=== PATIENT | female | born 1955 | race Caucasian/White ===

== ENCOUNTER 2018-08-30 14:05 | Outpatient (CLI) | payer BC ==
--- NOTE | 2018-08-30 15:44 | RAD ---
RIGHT RING DIGIT RADIOGRAPHS THREE VIEWS: 08/30/2018 PROVIDED CLINICAL HISTORY: Fourth digit pain status post injury. FINDINGS: There is a subtle avulsion fracture involving the base of the ring digit, middle phalanx, ulnarly. N o additional fracture is evident. Alignment appears anatomic. Joint spaces appear preserved. IMPRESSION: Avulsion fracture involving the base of the ring digit middle phalanx, ulnarly. POS: [facility]
== END 2018-08-30 14:06 | disposition home or self-care (01) ==
LOC: SCSRAD 14:05
PROVIDERS: ATTEND Internal Medicine
DX: M79.644 Pain in right finger(s) (principal); S62.624A Displaced fracture of middle phalanx of right ring finger, initial encounter for closed fracture

== ENCOUNTER 2018-09-17 07:26 | Day surgery (SDC) | payer BC ==
[2018-09-16 14:15] VITALS: BMI 23.0
[2018-09-17] MEDS ORDERED: Bupivacaine PF 0.5% 30 ML VIAL ONE (10:08)
[2018-09-17] MEDS ORDERED: Sodium Chloride 0.9% 10 ML ONE (10:08)
[2018-09-17] MEDS ORDERED: Famotidine/PF 20 mg/2ml Vial ONE (10:09)
[2018-09-17] MEDS ORDERED: Fentanyl 100 MCG/2 ML VIAL ONE ×2 (10:09→13:47)
[2018-09-17] MEDS ORDERED: Ondansetron PF 4 MG/2 ML Vial ONE (13:40)
[2018-09-17] MEDS ORDERED: Lidocaine 1% PF 5 ML VIAL ONE (13:40)
[2018-09-17] MEDS ORDERED: Dexamethasone 20 MG/5 ML VIAL ONE (13:40)
[2018-09-17] MEDS ORDERED: PROPOFOL 200 MG/20 ML VIAL ONE (13:40)
[2018-09-17] MEDS ORDERED: Ketorolac Tromethamine 30 MG/ML VIAL ONE ×2 (13:40→14:17)
[2018-09-17] MEDS ORDERED: Ondansetron ODT 4 MG TAB ONE (14:58)
--- NOTE | 2018-09-17 16:05 | RAD ---
RIGHT FOURTH FINGER TWO VIEWS: HISTORY: Status post ORIF. FINDINGS: Evidence for a fracture involving the middle phalanx of the 4th finger. Placement of pin and small m edial plate and screws stabilize the middle phalanx of the 4th finger, without significant malalignme nt. POS: C
--- NOTE | 2018-09-20 10:10 | OP ---
DATE OF PROCEDURE: 09/17/2018 PREOPERATIVE DIAGNOSES: Right proximal phalanx malunion, periarticular and intra-articular with a 1.5 mm step-off central and ulna leading to apex radial angulation of almost 20 degrees without malrotation. POSTOPERATIVE DIAGNOSES: Right proximal phalanx malunion, periarticular and intra-articular with a 1.5 mm step-off central and ulna leading to apex radial angulation of almost 20 degrees without malrotation. PROCEDURES PERFORMED: 1. Joint manipulation under anesthesia. 2. C-arm supervision. 3. Joint elevation with K-wires and curettes and three osteotomy of the metaphyseal diaphyseal junction, closed wedge with bone grafting and fixation with 1.5 mm Synthes screws. ESTIMATED BLOOD LOSS: 10 mL. TOURNIQUET TIME: 102 minutes. FINDINGS: At the end of procedure, with the joint level with the osteotomy as listed above, there was 1 to 1.5 mm of central compression. No instability and had passive motion to -5 to 110 degrees intraoperatively. DESCRIPTION OF PROCEDURE: After successful general LMA technique, the limb was prepped and draped. The patient had a block performed with 15 mL of 0.5% Marcaine at metacarpophalangeal joint level. From here, the patient had the limb exsanguinated, tourniquet inflated to 250 mmHg pressure, and we began to open part. We first made an incision on the mid lateral small finger side hoping to make an open wedge osteotomy, but all we had to do here was to force joint level and here we attempted to do some reparative correction to the sagittal plane split. We then noticed that the sagittal plane split still with problem, but after multiple joystick attempts, we were able to slightly decrease the angulation at the base of ulnar side of the PIP joint. Then, we placed two wires here in the small finger side, mid lateral approach, parallel to the other reparative joint noting 1 cm osteotomy had to be at least 20 degrees away from each of angulation. The patient then had minimal successive joint elevation, so we decided to not distort the joint or to replace, but to perform an osteotomy closing wedge. This allowed more stability and easier correction. We then made a midlateral incision on the opposite side of the finger, the radial side, carried the skin, subcutaneous tissue, identified collaterals as well as the other parts of the extrinsic tendon system and protected them. There, we outlined a saw cut 3 to 4 mm from distal to the metaphyseal base and palmar to the extensor tendons and dorsal to the flexor tendon. I made a saw cut parallel. Then we calculated there was approximately 22-degree angulation without rotation, so we overcorrected and we needed approximately 2 mm closed wedge bone cut and as we finished manipulating the ulnar joint to create as much joint level as possible, we made this cut, removed the wafer and closed it and held with a K-wire. This indeed allow for slight over-correction, so we had to relax this and place some more bone graft at the osteotomy site. We then re-K-wired, had excellent position in the frontal sagittal plane, placed the plate in appropriate position. There was only holes with one hole being exactly over the fracture site. The patient then had the K-wire passed across this osteotomy site, held it in the same frontal and sagittal plane, bone and clinical gross orientation with correction of the angulation and it matched the contralateral side. We then noticed that we did not completely close, so we had made a slightly larger cut that needed for correction, but in order for over-correction, we skewed it here bone graft just to include some graft that was used to help support the subarticular region with cancellous chips from donated cadaver. Then, in order to stabilize this and make early motion, we placed a midlateral plane plate from the radial side with two screws distal and proximal to the fracture line. The patient left the operating room. The patient then had the tourniquet deflated. We manipulated the joint to 150 degrees of flexion and -10 extension easily. We then closed the incisions in the mid-lateral position of the radioulnar aspect with 4-0 nylon interrupted fashion, and placed the patient in a bulky dressing and after given the last 5 mL of the injection as listed above and the patient had no complications. Job ID: [id number]
== END 2018-09-17 15:32 | disposition home or self-care (01) ==
LOC: SDC 07:26
PROVIDERS: ATTEND Orthopaedic Surgery Hand Surgery
PROC: 0PST04Z Reposition Right Finger Phalanx with Internal Fixation Device, Open Approach (ICD-10-PCS; principal; 2018-09-17)
DX: S62.614A Displaced fracture of proximal phalanx of right ring finger, initial encounter for closed fracture (principal); I10 Essential (primary) hypertension; I73.00 Raynaud's syndrome without gangrene; E03.9 Hypothyroidism, unspecified; E78.5 Hyperlipidemia, unspecified; M06.9 Rheumatoid arthritis, unspecified; M81.0 Age-related osteoporosis without current pathological fracture; Z88.1 Allergy status to other antibiotic agents; Z91.09 Other allergy status, other than to drugs and biological substances; Z79.82 Long term (current) use of aspirin; Z79.899 Other long term (current) drug therapy; Z98.890 Other specified postprocedural states
CPT/HCPCS: 76000; J0131; J1885; J3010; Q0162; S0020; S0028

== ENCOUNTER 2019-08-11 08:32 | Outpatient (CLI) | payer MEDICARE, BC ==
[2019-08-11 12:47] LABS: #Eosinphils 0.1 thou/uL (0.0-0.7); #Lymphocytes 2.1 thou/uL (1.20-3.40); #Monocytes 0.5 thou/uL (0.11-0.59); #Neutrophils 3.4 thou/uL (1.40-6.50); %Basophils 0.7 % (0.0-1.0); %Eosinophils 1.5 % (0.0-10.0); %Lymphocytes 33.8 % (21.0-51.0); %Monocytes 8.9 % (0.0-10.0); %Neutrophils 55.1 % (42.0-75.0); Hemoglobin 12.9 g/dL (12.0-16.0); Mean Corpuscular HGB CONC 32.8 g/dL (32.0-36.0); Mean Corpuscular Hemoglobin 30.3 pg (27.0-31.0); Mean Corpuscular Volume 92.5 fL (78.0-98.0); Mean Platelet Volume 8.2 fL (7.4-10.4); Platelet Count 255 thou/uL (130-400); RBC Distribution Width 11.6 % (11.5-14.5); Red Blood Cell (RBC) Count 4.27 mill/uL (4.20-5.40); White Blood Cell (WBC) Count 6.1 thou/uL (4.8-10.8)
[2019-08-11 13:00] LABS: Bacteria/HPF None Seen HPF (None Seen); Bilirubin Negative (Negative); Blood, Urine Negative (Negative); Clarity Clear (Clear); Glucose, Urine (Dipstick) Normal (Negative); Leukocyte Negative Leu/uL (Negative); Nitrite Negative (Negative); Protein, Urine (Dipstick) Negative (Neg-Trace); RBC/HPF 0-3 HPF (0-3); Squamous Epithelial 0-3 HPF (0-3); Urobilinogen Normal mg/dL (Less than 2); WBC/HPF 0-3 HPF (0-3)
[2019-08-11 13:09] LABS: Anion Gap 13 mmol/L (10-20); BUN (Urea Nitrogen) 21 mg/dL (9.8-20.1); Calc. Creatinine Clearance 0 mL/min (70-130); Carbon Dioxide 26 mmol/L (23-31); Chloride 108 mmol/L (98-107); Estimated GFR-MDRD 54; Glucose 100 mg/dL (80-115); Potassium 3.9 mmol/L (3.5-5.1); Sodium 143 mmol/L (136-145)
== END 2019-08-11 08:33 | disposition home or self-care (01) ==
LOC: LABBT 08:32
PROVIDERS: ATTEND Orthopaedic Surgery Hand Surgery
DX: Z01.818 Encounter for other preprocedural examination (principal); T84.84XA Pain due to internal orthopedic prosthetic devices, implants and grafts, initial encounter
CPT/HCPCS: 80048; 81001; 85025; 93005; 93010

== ENCOUNTER 2019-08-12 06:41 | Day surgery (SDC) | payer MEDICARE, BC ==
[2019-08-11 10:15] VITALS: BMI 23.9
[2019-08-12] MEDS ORDERED: Bupivacaine PF 0.5% 30 ML VIAL ONE (08:13)
[2019-08-12] MEDS ORDERED: Bacitracin Zinc Ointment 30 gm TUBE ONE (08:13)
[2019-08-12] MEDS ORDERED: Fentanyl 100 MCG/2 ML VIAL ONE (08:23)
[2019-08-12] MEDS ORDERED: Betamet Acet/Betamet Na Ph 30 MG/5 ML VIAL ONE (09:32)
[2019-08-12] MEDS ORDERED: Dexamethasone 20 MG/5 ML VIAL ONE (09:34)
[2019-08-12] MEDS ORDERED: Lidocaine 1% PF 5 ML VIAL ONE (09:34)
[2019-08-12] MEDS ORDERED: Ondansetron PF 4 MG/2 ML Vial ONE (09:34)
[2019-08-12] MEDS ORDERED: Ketorolac Tromethamine 30 MG/ML VIAL ONE (09:34)
[2019-08-12] MEDS ORDERED: PROPOFOL 200 MG/20 ML VIAL ONE (09:34)
--- NOTE | 2019-08-12 14:56 | RAD ---
EXAM: 3 views of the right ring finger HISTORY: Hardware removal from right ring finger COMPARISON: 09/17/2018 FINDINGS: Multiple limited intraoperative fluoroscopic views of the right ring finger shows removal o f the previously seen hardware in the middle phalanx. There is remodeling of the middle phalanx from a healed fracture in this location. Joint space narrowing is seen in the PIP joint likely second baljinder to posttraumatic osteoarthritis. IMPRESSION: Hardware removal without evidence of complication.
--- NOTE | 2019-08-12 16:42 | OP ---
DATE OF PROCEDURE: 08/12/2019 PREOPERATIVE DIAGNOSIS: Painful deep implant, Synthes plate and screws, radial aspect of the middle phalanx after previous osteotomy 9 months ago. POSTOPERATIVE DIAGNOSES: 1. Painful deep implant, Synthes plate and screws, radial aspect of the middle phalanx after previous osteotomy 9 months ago. 2. Extensor tendon mechanism adhesions to bone and to skin, distal one-half of the middle phalanx. 3. Scar, extensor mechanism over the plate. PROCEDURE PERFORMED: 1. Extensor tenolysis, finger, right ring. 2. Removal of deep implant, right ring finger, middle phalanx. 3. C-arm supervision. TRANSMITTER SUPERVISOR: Kayleen Min PA-C. TOURNIQUET TIME: 50 minutes. ESTIMATED BLOOD LOSS: Less than 10 mL. INJECTABLE: 10 mL 0.5% Marcaine in the metacarpophalangeal joint level, ring finger, prior to incision INDICATIONS FOR SURGERY: As above. DESCRIPTION OF PROCEDURE: After successful general endotracheal anesthesia, the limb was prepped and draped. We gave the injection after a time-out with a total of 12 mL of 0.5% Marcaine. The patient then had the C-arm brought into the field, identified that the plate was on the radial side as she had 2 incisions. We then used the previous incision, extended it 5 mm distally, carried it through skin and subcutaneous tissue. We then found extensor mechanism to be adherent to skin. We then released it at the junction of the dorsal one-third and the palmar two-thirds of the lateral bands extensor mechanism. Once we did this, we saw the lateral bands were adherent as well to the plate and we did tenolysis here and continued the tenolysis of skin with the extensor mechanism distally. We then identified all the plate and screws, removed the 1.5 screw and plate without complication, freed the extensor mechanism from the bone on both sides of the plate, and then irrigated. We placed 3 mL Celestone in the bed where the plate was performed and took the IP joints through 10 cycles of flexion extension. We released the tourniquet. We obtained hemostasis. We repaired the mechanism with a running 4-0 Prolene. We then obtained hemostasis subcutaneously. We closed the skin with a 4-0 nylon in mattress pattern. She left the operating room with a bulky dressing. No evidence of anesthetic or operative complication. Job ID: [id number]
== END 2019-08-12 11:30 | disposition home or self-care (01) ==
LOC: SDC 06:41
PROVIDERS: ATTEND Orthopaedic Surgery Hand Surgery
PROC: 0LN70ZZ Release Right Hand Tendon, Open Approach (ICD-10-PCS; principal; 2019-08-12)
PROC: 0RPW0JZ Removal of Synthetic Substitute from Right Finger Phalangeal Joint, Open Approach (ICD-10-PCS; 2019-08-12)
DX: T84.84XA Pain due to internal orthopedic prosthetic devices, implants and grafts, initial encounter (principal); M24.541 Contracture, right hand; E03.9 Hypothyroidism, unspecified; M81.0 Age-related osteoporosis without current pathological fracture; M06.9 Rheumatoid arthritis, unspecified; I10 Essential (primary) hypertension; E78.5 Hyperlipidemia, unspecified; Z79.82 Long term (current) use of aspirin; Z79.899 Other long term (current) drug therapy; Z88.1 Allergy status to other antibiotic agents; Z88.8 Allergy status to other drugs, medicaments and biological substances; Z98.890 Other specified postprocedural states
CPT/HCPCS: 76000; J0690; J0702; J1100; J1885; J2001; J2405; J2704; J3010; J3490; S0020

== ENCOUNTER 2019-11-04 09:30 | Day surgery (SDC) | payer MEDICARE, BC ==
[2019-11-03 14:20] VITALS: BMI 24.4
[2019-11-04 10:39] LABS: #Eosinphils 0.1 thou/uL (0.0-0.7); #Monocytes 0.4 thou/uL (0.11-0.59); #Neutrophils 2.5 thou/uL (1.40-6.50); %Basophils 0.8 % (0.0-1.0); %Eosinophils 2.4 % (0.0-10.0); %Lymphocytes 39.1 % (21.0-51.0); %Monocytes 8.5 % (0.0-10.0); %Neutrophils 49.2 % (42.0-75.0); Mean Corpuscular HGB CONC 33.1 g/dL (32.0-36.0); Mean Corpuscular Hemoglobin 30.3 pg (27.0-31.0); Mean Corpuscular Volume 91.5 fL (78.0-98.0); Mean Platelet Volume 7.5 fL (7.4-10.4); Platelet Count 267 thou/uL (130-400); RBC Distribution Width 11.5 % (11.5-14.5); Red Blood Cell (RBC) Count 4.28 mill/uL (4.20-5.40); White Blood Cell (WBC) Count 5.1 thou/uL (4.8-10.8)
[2019-11-04] MEDS ORDERED: Midazolam HCl 2 mg/2 ml Vial ONE (11:23)
[2019-11-04] MEDS ORDERED: Fentanyl 100 MCG/2 ML VIAL ONE (11:23)
[2019-11-04] MEDS ORDERED: Thrombin 5000 UNITS/5 ML VIAL ONE (11:28)
[2019-11-04] MEDS ORDERED: Bupivacaine PF 0.5% 30 ML VIAL ONE (11:28)
[2019-11-04] MEDS ORDERED: Bacitracin Zinc Ointment 30 gm TUBE ONE (11:28)
[2019-11-04] MEDS ORDERED: Propofol 1,000 MG/100 ML VIAL IV ONE (12:06)
[2019-11-04] MEDS ORDERED: Ketorolac Tromethamine 30 MG/ML VIAL ONE (13:09)
[2019-11-04] MEDS ORDERED: PROPOFOL 200 MG/20 ML VIAL ONE (13:46)
--- NOTE | 2019-11-04 14:21 | OP ---
DATE OF PROCEDURE: 11/04/2019 PREOPERATIVE DIAGNOSES: 1. Abscess, right ring finger, extra-articular. 2. Suture abscess. 3. No evidence of joint involvement. POSTOPERATIVE DIAGNOSES: 1. Abscess, right ring finger, extra-articular. 2. Suture abscess. 3. No evidence of joint involvement. PROCEDURES PERFORMED: 1. Incision and drainage or right ring finger abscess, removal of suture. 2. Arthrotomy, proximal interphalangeal joint, right ring finger with irrigation and exploration. SPECIMEN SENT: Suture from abscess cavity. FINDING: No intra-articular infection seen. TOURNIQUET TIME: 60 minutes. ESTIMATED BLOOD LOSS: Less than or equal to 10 mL. INJECTION: Yes, 15 mL metacarpophalangeal joint level of 0.5% Marcaine block. INDICATIONS FOR PROCEDURE: The patient is now almost 18 months since her fracture where she had open reduction and internal fixation and plate in place. The plate became painful, and so 3 months prior that she had removed. She now complains in the clinic the day before the procedure of 2 days of drainage, erythema and presented with an abscess with a small pinhole drainage cavity just distal to the joint. It was over her previous incision line and we felt it was a deep abscess at best and possible intra-articular abscess. DESCRIPTION OF PROCEDURE: After successful general endotracheal anesthesia, limb was prepped and draped. Time-out was done appropriately. We then injected 15 mL of metacarpophalangeal joint level block for the ring finger. We then exsanguinated the limb, inflated the tourniquet, used the whole proximal one-half of her previous incision (almost 2 cm), dissected down, and immediately under the skin where the abscess cavity, which we resected and the center abscess cavity was the unwinding Prolene suture. We removed this suture and all the sutures seen visible. We irrigated this area with a liter of normal saline and then went deeper to include obliquely orient radial arthrotomy, dorsal to the line of the lateral radial collateral ligament. We elevated the joint, found no visible infection. We irrigated with a small catheter, total of 100 mL in the joint. Specimens that were sent were the skin level abscess, subcutaneous abscess, and the suture. The patient left the operating room after we deflated the tourniquet and obtained hemostasis. We closed the distal and proximal 5 mm, leaving open, which we packed and placed in a dressing. The patient left the operating room with a pink finger. No evidence of anesthetic or operative complication. Job ID: [id number]
== END 2019-11-04 14:21 | disposition home or self-care (01) ==
LOC: SDC 09:30
PROVIDERS: ATTEND Orthopaedic Surgery Hand Surgery
PROC: 0R9W0ZZ Drainage of Right Finger Phalangeal Joint, Open Approach (ICD-10-PCS; principal; 2019-11-04)
DX: L02.511 Cutaneous abscess of right hand (principal); Z79.899 Other long term (current) drug therapy; Z88.1 Allergy status to other antibiotic agents; Z91.048 Other nonmedicinal substance allergy status
CPT/HCPCS: 85025; 87070; 87077; 87186; 87205; J0690; J1885; J2250; J2704; J3010; J3370; S0020

== ENCOUNTER 2021-01-17 18:25 | Emergency (ER) | payer MEDICARE, BC ==
[2021-01-17] MEDS ORDERED: Fentanyl 100 MCG/2 ML VIAL ONE (18:38)
[2021-01-17] MEDS ORDERED: Ondansetron PF 4 MG/2 ML Vial ONE (18:39)
[2021-01-17] MEDS ORDERED: Ketorolac Tromethamine 30 MG/ML VIAL ONE (18:39)
[2021-01-17 18:57] LABS: #Eosinphils 0.1 thou/uL (0.0-0.7); #Monocytes 0.8 thou/uL (0.11-0.59); #Neutrophils 6.3 thou/uL (1.40-6.50); %Basophils 0.4 % (0.0-1.0); %Eosinophils 0.7 % (0.0-10.0); %Lymphocytes 35.6 % (21.0-51.0); %Monocytes 7.3 % (0.0-10.0); %Neutrophils 56.1 % (42.0-75.0); Hemoglobin 13.4 g/dL (12.0-16.0); Mean Corpuscular HGB CONC 35.1 g/dL (32.0-36.0); Mean Corpuscular Hemoglobin 32.4 pg (27.0-31.0); Mean Corpuscular Volume 92.2 fL (78.0-98.0); Mean Platelet Volume 7.8 fL (7.4-10.4); Platelet Count 280 thou/uL (130-400); RBC Distribution Width 11.8 % (11.5-14.5); Red Blood Cell (RBC) Count 4.14 mill/uL (4.20-5.40); White Blood Cell (WBC) Count 11.2 thou/uL (4.8-10.8)
[2021-01-17 19:13] LABS: ALT (SGPT) 27 U/L (8-55); AST (SGOT) 26 U/L (5-34); Albumin 4.6 g/dL (3.4-4.8); Alkaline Phosphatase 73 U/L (40-110); Anion Gap 18 mmol/L (10-20); BUN (Urea Nitrogen) 27 mg/dL (9.8-20.1); Bilirubin, Total 0.8 mg/dL (0.2-1.2); Calc. Creatinine Clearance 0 mL/min (70-130); Calcium 9.7 mg/dL (7.8-10.44); Carbon Dioxide 22 mmol/L (23-31); Chloride 104 mmol/L (98-107); Globulin 3.2 g/dL (2.4-3.5); Glucose 115 mg/dL (80-115); Lipase 43 U/L (8-78); Protein, Total 7.8 g/dL (5.8-8.1); Sodium 140 mmol/L (136-145)
[2021-01-17 20:08] LABS: Bilirubin Negative (Negative); Blood, Urine 2+ (Negative); Clarity Clear (Clear); Glucose, Urine (Dipstick) Normal (Negative); Ketone, Urine 20 mg/dL (Negative); Leukocyte Negative Leu/uL (Negative); Nitrite Negative (Negative); Protein, Urine (Dipstick) 10 mg/dL (Neg-Trace); RBC/HPF Greater than 50 HPF (0-3); Specific Gravity, Urine 1.023 (1.002-1.036); Squamous Epithelial 0-3 HPF (0-3); Urobilinogen Normal mg/dL (Less than 2)
[2021-01-17 20:10] LABS: Bacteria/HPF Rare-Few HPF (None Seen)
== END 2021-01-17 21:00 | disposition home or self-care (01) ==
LOC: ERS 18:25
DX: N20.2 Calculus of kidney with calculus of ureter (principal); E78.00 Pure hypercholesterolemia, unspecified; E03.9 Hypothyroidism, unspecified; Z79.899 Other long term (current) drug therapy
CPT/HCPCS: 74176; 80053; 81003; 81015; 83690; 85025; 96374; 96375; J1885; J2405; J3010

== ENCOUNTER 2021-06-17 16:41 | Inpatient (IN) | payer MEDICARE, BC ==
[~2021-06-17 16:41] MED LIST: Iopamidol-370 76% 500 ML 1 ML ONE
[2021-06-17 17:14] LABS: #Monocytes 0.7 thou/uL (0.11-0.59); #Neutrophils 7.4 thou/uL (1.40-6.50); %Basophils 0.2 % (0.0-1.0); %Eosinophils 0.4 % (0.0-10.0); %Lymphocytes 19.8 % (21.0-51.0); %Monocytes 6.7 % (0.0-10.0); Mean Corpuscular HGB CONC 33.4 g/dL (32.0-36.0); Mean Corpuscular Hemoglobin 31.2 pg (27.0-31.0); Mean Corpuscular Volume 93.5 fL (78.0-98.0); Mean Platelet Volume 7.3 fL (7.4-10.4); Platelet Count 245 thou/uL (130-400); RBC Distribution Width 11.7 % (11.5-14.5); Red Blood Cell (RBC) Count 4.48 mill/uL (4.20-5.40); White Blood Cell (WBC) Count 10.2 thou/uL (4.8-10.8)
[2021-06-17 17:34] LABS: ALT (SGPT) 24 U/L (8-55); AST (SGOT) 24 U/L (5-34); Albumin 4.5 g/dL (3.4-4.8); Alkaline Phosphatase 71 U/L (40-110); Anion Gap 14 mmol/L (10-20); BUN (Urea Nitrogen) 13 mg/dL (9.8-20.1); Bilirubin, Total 1.4 mg/dL (0.2-1.2); Calc. Creatinine Clearance 0 mL/min (70-130); Calcium 9.3 mg/dL (7.8-10.44); Carbon Dioxide 26 mmol/L (23-31); Chloride 106 mmol/L (98-107); Globulin 3.1 g/dL (2.4-3.5); Glucose 98 mg/dL (80-115); Potassium 3.9 mmol/L (3.5-5.1); Protein, Total 7.6 g/dL (5.8-8.1); Sodium 142 mmol/L (136-145)
[2021-06-17 18:16] LABS: Bilirubin Negative (Negative); Blood, Urine Negative (Negative); Clarity Clear (Clear); Glucose, Urine (Dipstick) Normal (Negative); Ketone, Urine Negative (Negative); Leukocyte Negative Leu/uL (Negative); Nitrite Negative (Negative); Protein, Urine (Dipstick) Negative (Neg-Trace); Specific Gravity, Urine 1.011 (1.002-1.036); Urobilinogen Normal mg/dL (Less than 2)
[2021-06-17] MEDS ORDERED: Ondansetron PF 4 MG/2 ML Vial ONE (18:27)
[2021-06-17] MEDS ORDERED: Morphine 4 MG/ML VIAL ONE (18:27)
[2021-06-17] MEDS ORDERED: Pantoprazole 40 MG VIAL IVP SCH (19:00)
[2021-06-17 19:13] LABS: CK (CPK) 91 U/L (29-168); Lipase 29 U/L (8-78)
[2021-06-17] MEDS ORDERED: metroNIDAZOLE 500 MG in Premix Bag 1 BAG IVPB SCH (21:15)
[2021-06-17] MEDS ORDERED: D5 1/2 NS w/20 mEq KCL 1,000 ML ONE (23:46)
[2021-06-17] MEDS ORDERED: Ondansetron PF 4 MG/2 ML Vial IVP PRN (23:50)
[2021-06-17] MEDS ORDERED: Ondansetron ODT 4 MG TAB PO PRN (23:50)
[2021-06-17] MEDS ORDERED: Morphine 4 MG/ML VIAL SLOW IVP PRN (23:50)
[2021-06-18] MEDS: D5 1/2 NS w/20 mEq KCL 1,000 ML IV SCH ×2 (00:16→08:53)
[2021-06-18 01:36] LABS: #Monocytes 0.7 thou/uL (0.11-0.59); #Neutrophils 6.6 thou/uL (1.40-6.50); %Basophils 0.4 % (0.0-1.0); %Eosinophils 0.5 % (0.0-10.0); %Monocytes 7.6 % (0.0-10.0); %Neutrophils 70.5 % (42.0-75.0); Hemoglobin 12.6 g/dL (12.0-16.0); Mean Corpuscular HGB CONC 34.6 g/dL (32.0-36.0); Mean Corpuscular Hemoglobin 32.4 pg (27.0-31.0); Mean Corpuscular Volume 93.5 fL (78.0-98.0); Mean Platelet Volume 7.2 fL (7.4-10.4); Platelet Count 199 thou/uL (130-400); RBC Distribution Width 11.7 % (11.5-14.5); White Blood Cell (WBC) Count 9.4 thou/uL (4.8-10.8)
[2021-06-18 01:58] LABS: ALT (SGPT) 21 U/L (8-55); AST (SGOT) 21 U/L (5-34); Albumin 3.6 g/dL (3.4-4.8); Alkaline Phosphatase 54 U/L (40-110); Anion Gap 8 mmol/L (10-20); BUN (Urea Nitrogen) 11 mg/dL (9.8-20.1); Bilirubin, Total 1.6 mg/dL (0.2-1.2); Calc. Creatinine Clearance 0 mL/min (70-130); Calcium 8.3 mg/dL (7.8-10.44); Carbon Dioxide 27 mmol/L (23-31); Chloride 109 mmol/L (98-107); Globulin 2.8 g/dL (2.4-3.5); Glucose 136 mg/dL (80-115); Potassium 3.8 mmol/L (3.5-5.1); Protein, Total 6.4 g/dL (5.8-8.1); Sodium 140 mmol/L (136-145)
[2021-06-18] MEDS ORDERED: hydrALAZINE 20 MG/ML VIAL SLOW IVP PRN (02:26)
[2021-06-18] MEDS ORDERED: metroNIDAZOLE 500 MG in Premix Bag 1 BAG IVPB SCH (06:00)
[2021-06-18] MEDS ORDERED: Dextrose 50% Abboject 50 ML SYRINGE ONE (08:50)
[2021-06-18] MEDS: Pantoprazole 40 MG VIAL IVP SCH ×2 (08:53→20:50)
[2021-06-18 10:34] VITALS: BMI 23.8
[2021-06-18] MEDS: metroNIDAZOLE 500 MG in Premix Bag 1 BAG IVPB SCH ×2 (14:21→14:22)
[2021-06-18] MEDS ORDERED: Nitroglycerin 0.4 MG TAB (25 Tab Bottle) SL PRN (20:22)
[2021-06-18 21:26] LABS: Troponin I Less than 0.010 ng/mL (< 0.028)
[2021-06-19 05:06] LABS: #Eosinphils 0.1 thou/uL (0.0-0.7); #Lymphocytes 1.9 thou/uL (1.20-3.40); #Monocytes 0.7 thou/uL (0.11-0.59); #Neutrophils 6.9 thou/uL (1.40-6.50); %Basophils 0.4 % (0.0-1.0); %Eosinophils 0.8 % (0.0-10.0); %Lymphocytes 19.8 % (21.0-51.0); %Monocytes 7.3 % (0.0-10.0); %Neutrophils 71.8 % (42.0-75.0); Hemoglobin 12.5 g/dL (12.0-16.0); Mean Corpuscular HGB CONC 32.7 g/dL (32.0-36.0); Mean Corpuscular Hemoglobin 30.8 pg (27.0-31.0); Mean Corpuscular Volume 94.2 fL (78.0-98.0); Mean Platelet Volume 7.5 fL (7.4-10.4); Platelet Count 201 thou/uL (130-400); RBC Distribution Width 11.6 % (11.5-14.5); Red Blood Cell (RBC) Count 4.04 mill/uL (4.20-5.40); White Blood Cell (WBC) Count 9.6 thou/uL (4.8-10.8)
[2021-06-19] MEDS ORDERED: Sodium Chloride 0.9% 1,000 ML IV SCH (08:15)
[2021-06-19] MEDS: Pantoprazole 40 MG VIAL IVP SCH (10:00)
[2021-06-19 14:25] VITALS: TEMP 98
[2021-06-19 16:38] VITALS: BP 120/68
[2021-06-20 13:27] LABS: ANA Symphony (Qualitative) Negative (Negative); ANA Symphony (Quantitative) 0.2 Ratio (< 0.7 Negative); dsDNA IgG Antibody Less than 0.5 IU/mL (<10 Negative)
== END 2021-06-19 16:55 | disposition home or self-care (01) | DRG 394 ==
LOC: ERS 16:41 → ERHOLD 20:51 → 2NO 06-18 09:57
PROVIDERS: ADMIT Internal Medicine; ATTEND Internal Medicine
DX: K55.9 Vascular disorder of intestine, unspecified (principal); I20.1 Angina pectoris with documented spasm; Z20.822 Contact with and (suspected) exposure to COVID-19; E78.00 Pure hypercholesterolemia, unspecified; E03.9 Hypothyroidism, unspecified; N20.0 Calculus of kidney; Z98.890 Other specified postprocedural states; Z91.041 Radiographic dye allergy status; Z88.8 Allergy status to other drugs, medicaments and biological substances; Z79.890 Hormone replacement therapy; Z79.899 Other long term (current) drug therapy
CPT/HCPCS: 36415; 74177; 80053; 81003; 82274; 82550; 83690; 84484; 85025; 86038; 86160; 86225; 86850; 86900; 86901; 87040; 93005; 93010; C9113; J1956; J2270; J2405; J3480; J7050; Q9967

== ENCOUNTER 2023-06-02 13:35 | Outpatient (CLI) | payer MEDICARE, BC | END 2023-06-02 13:36 | disposition home or self-care (01) | LOC: SCSRAD 13:35 | PROVIDERS: ATTEND Internal Medicine | DX: M79.671 Pain in right foot (principal) ==

== ENCOUNTER 2024-04-21 16:02 | Outpatient (CLI) | payer MEDICARE, BC | END 2024-04-21 16:03 | disposition home or self-care (01) | LOC: BICRAD 16:02 | PROVIDERS: ATTEND Internal Medicine | DX: M75.81 Other shoulder lesions, right shoulder (principal); M19.011 Primary osteoarthritis, right shoulder ==